=== PATIENT | male | born 1985 | race Caucasian/White ===

== ENCOUNTER 2023-01-24 10:55 | Emergency (ER) | payer SELFPAY ==
[~2023-01-24] VITALS: Ht 172.7 cm; Wt 93.0 kg
[2023-01-24 11:30] VITALS: BP 116/83; PULSE 81; RESP 20; TEMP 98.3; O2SAT 95
[2023-01-24] MEDS ORDERED: CEPH-588 PO (12:17)
== END 2023-01-24 13:34 | disposition home or self-care (01) ==
LOC: MED 10:55
DX: S68.111A Complete traumatic metacarpophalangeal amputation of left index finger, initial encounter (principal); X58.XXXA Exposure to other specified factors, initial encounter; Y93.89 Activity, other specified; Y92.89 Other specified places as the place of occurrence of the external cause; Y99.8 Other external cause status
CPT/HCPCS: 73140; 99283